=== PATIENT | male | born 1960 | race Caucasian/White ===

== ENCOUNTER 2024-12-08 09:30 | Day surgery (SDC) | payer OTHER ==
[~2024-12-08 09:30] MED LIST: AMLODIPINE-OLM1 EAC2; EZALLOR SPRINKL40 MG PO; MICARDIS80 MG PO; PREDNISONE5 M1 PO
[2024-12-08] MEDS ORDERED: CEFTRIAXONE SODIUM 2,000 MG VIAL ONE (10:39)
[2024-12-08] MEDS ORDERED: METRONIDAZOLE/SODIUM CHLORIDE 500 MG/100 ML PIGGYBACK IV ONE (10:39)
[2024-12-08] MEDS ORDERED: POVIDONE-IODINE 118 ML BOTT TOP ONE (10:46)
[2024-12-08] MEDS ORDERED: DIBUCAINE 30 GM TUBE ONE (10:46)
[2024-12-08] MEDS ORDERED: HEMOSTATIC MATRIX 1 KIT KIT TOP ONE (10:47)
== END 2024-12-08 17:20 | disposition home or self-care (01) ==
LOC: CIR.AMB 09:30
PROVIDERS: ATTEND Colon & Rectal Surgery
DX: D12.9 Benign neoplasm of anus and anal canal (principal); K62.82 Dysplasia of anus; B20 Human immunodeficiency virus [HIV] disease; Z88.6 Allergy status to analgesic agent